=== PATIENT | male | born 1940 | race Caucasian/White ===

== ENCOUNTER 2017-06-06 15:59 | Emergency (ER) | payer MEDICARE, OTHER ==
[2017-06-06] MEDS ORDERED: Cyclobenzaprine 10 MG Tab PO ONE (16:16)
[2017-06-06] MEDS ORDERED: Acetaminophen/HYDROcodone 325-5 MG Tab PO ONE (16:17)
--- NOTE | 2017-06-06 16:27 | EDM.PDOC ---
ED HPI GENERAL MEDICAL PROBLEM - General Chief Complaint: Back Pain or Injury Stated Complaint: PINCHED NERVE Time Seen by Provider: 06/06/17 16:08 Source of Information: Reports: Patient History Limitations: Reports: No Limitations. Denies: Altered Mental Status, Combative/Threatening, Intoxication - History of Present Illness INITIAL COMMENTS - FREE TEXT/NARRATIVE: This 76 yr male presents with pain to right upper shoulder for about 7-10 days. States he was moving a container and swung and pain started to area. Pt has been using ice/heat alternating at home for pain and pain became worse. Rated pain 8-9 on scale of 10. 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: Reports: Acetaminophen, Cold Therapy, NSAIDS - Related Data Allergies Allergy/AdvReac Type Severity Reaction Status Date / Time No Known Allergies Allergy Verified 06/06/17 16:30 Home Meds: Home Meds Budesonide/Formoterol Fumarate [Symbicort 160-4.5 Mcg Inhaler] 1 inh IN BID 11/22 [History] Tiotropium [Spiriva HandiHaler] 1 cap IN DAILY 06/06/17 [History] Social & Family History - Tobacco Use Smoking Status *Q: Former Smoker Years of Tobacco use: 50 Used Tobacco, but Quit: Yes Month Tobacco Last Used: 12 Second Hand Smoke Exposure: No - Caffeine Use Caffeine Use: Reports: Coffee, Soda - Alcohol Use Days Per Week of Alcohol Use: 5 Number of Drinks Per Day: 1 Total Drinks Per Week: 5 Date of Last Drink: 06/05/17 - Recreational Drug Use Recreational Drug Use: No ED ROS GENERAL - Review of Systems Review Of Systems: See Below Constitutional: Reports: No Symptoms. Denies: Fever, Chills HEENT: Reports: No Symptoms Respiratory: Reports: No Symptoms. Denies: Shortness of Breath, Cough Cardiovascular: Reports: No Symptoms. Denies: Chest Pain, Lightheadedness Endocrine: Reports: No Symptoms GI/Abdominal: Reports: No Symptoms. Denies: Abdominal Pain, Nausea : Reports: No Symptoms Musculoskeletal: Reports: Shoulder Pain, Back Pain Skin: Reports: No Symptoms. Denies: Rash, Erythema Neurological: Reports: No Symptoms. Denies: Confusion, Dizziness Psychiatric: Reports: No Symptoms Hematologic/Lymphatic: Reports: No Symptoms Immunologic: Reports: No Symptoms ED EXAM, UPPER BACK/NECK PAIN - Physical Exam Exam: See Below Exam Limited By: No Limitations General Appearance: Alert, No Apparent Distress Head Exam: Atraumatic Neck Exam: Non-Tender, Full Range of Motion Nexus Criteria: No: Evidence of Intoxication, Altered Level of Consciousness Cardiovascular/Respiratory: Regular Rate, Rhythm, Normal Breath Sounds. No: No Respiratory Distress, Rales, Rhonchi Back Exam: Muscle Spasm, Other (right upper back pain, states comfort with deep massage to area.) Extremities: Normal Inspection, Normal Range of Motion Neurologic: Normal Mood/Affect, Oriented x 3 Skin Exam: Normal Color, Warm/Dry. No: Diaphoresis Course - Vital Signs Last Recorded V/S: Last Vital Signs Temp 98 F 06/06/17 16:23 Pulse 80 06/06/17 16:23 Resp 22 H 06/06/17 16:23 BP 140/98 H 06/06/17 17:30 Pulse Ox 97 06/06/17 16:23 - Orders/Labs/Meds Orders: Active Orders 24 hr Category Date Time Status Ready for Discharge [RC] PER UNIT ROUTINE Care 06/06/17 17:25 Active Shoulder Comp Rt [CR] Stat Exams 06/06/17 16:18 Taken Meds: Medications Discontinued Medications Generic Name Dose Route Start Last Admin Trade Name Eliot PRN Reason Stop Dose Admin Hydrocodone Bitart/Acetaminophen 1 tab 06/06/17 16:17 06/06/17 16:35 [place] 325-5 Mg PO 06/06/17 16:18 1 tab ONETIME ONE Administration Hydrocodone Bitart/Acetaminophen Confirm 06/06/17 16:30 06/06/17 16:31 [place] 325-10 Mg Administered 06/06/17 16:31 1 tab Dose Administration 1 tab .ROUTE .STK-MED ONE Hydrocodone Bitart/Acetaminophen Confirm 06/06/17 16:38 [place] 325-5 Mg Administered 06/06/17 16:39 Dose 1 tab .ROUTE .STK-MED ONE Cyclobenzaprine HCl 10 mg 06/06/17 16:16 06/06/17 16:32 Flexeril PO 06/06/17 16:17 10 mg ONETIME ONE Administration Cyclobenzaprine HCl Confirm 06/06/17 16:29 06/06/17 16:31 Flexeril Administered 06/06/17 16:30 Not Given Dose 10 mg .ROUTE .STK-MED ONE - Radiology Interpretation Free Text/Narrative:: X-ray completed of left shoulder/scapula area. - Re-Assessments/Exams Free Text/Narrative Re-Assessment/Exam: X-ray reviewed and quick read per radiologist is normal with no acute fracture. Reviewed results with pt and . 06/07/17 08:10 Departure - Departure Time of Disposition: 17:31 Disposition: Home, Self-Care 01 Condition: Good Clinical Impression: Right-sided thoracic back pain - Discharge Information Instructions: Acetaminophen; Hydrocodone tablets or capsules, Shoulder Pain, Cyclobenzaprine tablets Referrals: PCP,None [Primary Care Provider] - Forms: ED Department Discharge Additional Instructions: Continue to alternate heat and ice to back for comfort tid to qid for 20 minutes each time. Flexeril 10 mg PO tid for muscle relaxer and Hydrocodone/ APAP 5mg/325mg PO 1-2 tab every 4-6 hour for pain. X-ray completed and no fracture noted. Pt did have Flexeril 10 mg PO and Hydrocodone/APAP 5mg/325 mg PO in ER. Pt has had heat to his right back during the ER visit. Discharge instructions given to pt. RX for Hydrocodone given to to fill at [facility]. Discussed no driving while taking medication and no use of machinery. Pt states some relief of pain after oral medications. Pt discharged to care of . Care Plan Goals: Alternate warm and cold packs as tolerated. Do not leave on longer than [address] a towel between pack and skin. Hydrocodone/Tylenol 1 to 2 tablets every 4 to 6 hours as needed for pain. Flexaril 10mg 3 x day as needed for discomfort (muscle relaxant). - My Orders Last 24 Hours: My Active Orders 06/06/17 16:18 Shoulder Comp Rt [CR] Stat 06/06/17 17:25 Ready for Discharge [RC] PER UNIT ROUTINE - Assessment/Plan Last 24 Hours: My Active Orders 06/06/17 16:18 Shoulder Comp Rt [CR] Stat 06/06/17 17:25 Ready for Discharge [RC] PER UNIT ROUTINE
[2017-06-06] MEDS ORDERED: Cyclobenzaprine 10 MG Tab ONE (16:29)
[2017-06-06] MEDS: Acetaminophen/HYDROcodone 325-10 MG Tab ONE ×2 (16:31)
[2017-06-06] MEDS ORDERED: Acetaminophen/HYDROcodone 325-5 MG Tab ONE (16:38)
--- NOTE | 2017-06-07 09:02 | CR ---
DATE OF SERVICE: 06/06/2017 CLINICAL DATA: PAIN IN LATERAL/INFERIOR SIDE OF RIGHT SCAPULA. RIGHT SHOULDER There is diffuse osteopenia. The right clavicle is slightly elevated with respect to the acromion process consistent with an AC separation. 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 No acute fracture or dislocation. No focal lytic or blastic bone lesions. [id number] [facility]
== END 2017-06-06 17:30 | disposition home or self-care (01) ==
LOC: LB.ED 15:59
DX: M54.6 Pain in thoracic spine (principal); M25.511 Pain in right shoulder; Z87.891 Personal history of nicotine dependence
CPT/HCPCS: 73030; 99283; A9270